=== PATIENT | female | born 1945 | race Caucasian/White ===

== ENCOUNTER → 2021-11-22 13:26 | Outpatient (CLI) | payer OTHER, SELFPAY ==
[2021-11-22 13:53] LABS: COVID19 -Nasal RAPID Negative (Negative)
== END ==
PROVIDERS: Visit Provider Surgery
DX: Z20.822 Contact with and (suspected) exposure to COVID-19 (principal); Z01.812 Encounter for preprocedural laboratory examination
CPT/HCPCS: 87635; C9803

== ENCOUNTER 2021-11-25 09:52 | Day surgery (SDC) | payer OTHER, SELFPAY ==
--- NOTE | 2021-11-25 | PATH_ITS ---
[facility] Accession Number: [id number] . 01 Material submitted: . PART A: stomach - ANTRUM PART B: gastrointestinal site - GASTRIC POLYPS PART C: esophagus - DISTAL ESOPHAGUS . 01 Diagnosis: A. Stomach, Antrum, Biopsy: Antral mucosa with mild chronic gastritis and mild reactive gastropathy. Negative for Helicobacter by immunohistochemistry. Negative for intestinal metaplasia. Negative for dysplasia and malignancy. . B. Stomach, Polyps, Biopsies: Fundic gland polyp. Gastric hyperplastic polyp. No evidence of Helicobacter on H/E stain. Negative for intestinal metaplasia. Negative for dysplasia and malignancy. . C. Distal Esophagus, Biopsies: Squamocolumnar junctional mucosa with specialized intestinal metaplasia, consistent with Donnelly's esophagus. Negative for dysplasia and malignancy. MRV 11/29/2021 1312 Local . 01 Electronically signed: . Imelda Torres MD, Pathologist NPI- [id number] . 01 Gross description: . Part A: ANTRUM: Received in formalin is 1 fragment(s) of angela, soft tissue measuring 0.3 x 0.2 x 0.2 cm submitted entirely in 1 cassette(s) Part B: GASTRIC POLYPS: Received in formalin are 2 fragment(s) of angela, soft tissue measuring 0.3 x 0.3 x 0.1 cm to 0.3 x 0.2 x 0.1 cm submitted entirely in 1 cassette(s) Part C: DISTAL ESOPHAGUS: Received in formalin is 1 fragment(s) of angela, soft tissue measuring 0.3 x 0.2 x 0.2 cm submitted entirely in 1 cassette(s) /CPE 11/26/2021 0836 Local . 01 Microscopic: . A. An immunohistochemical stain was performed to evaluate for Helicobacter organisms and is negative. The control stain showed appropriate reactivity. . * This test was developed and its performance characteristics determined by [facility]. It has not been cleared or approved by the U.S. Food and Drug Administration. The FDA has determined that such clearance or approval is not necessary. This test is used for clinical purposes. It should not be regarded as investigational or for research. . 01 Pathologist provided ICD-10: K22.70 . 01 CPT . 722012, 113280, 143925, T91281 Specimen Comment: A courtesy copy of this report has been sent to [phone] Performed at: 01 [facility] [address] [place] [address], [place], [place] [id number] MD David Nogueira MD Phone: [phone]
[2021-11-25 10:23] VITALS: BP 145/69; PULSE 70; RESP 16; TEMP 37.2; O2SAT 96; BMI 21.9
[2021-11-25] MEDS: SODIUM CHLORIDE 0.9% 1,000 ML 100 ML IV (10:33)
--- NOTE | 2021-11-25 10:58 | PM.HP.1 ---
History of Present Illness History of Present Illness Date Patient Seen: 11/25/21 Time Patient Seen: 10:58 Chief complaint: SDC Narrative: I reviewed my recent office note. Patient is indicated for Barretts surveillance. Patient History Medical History Anxiety Barretts esophagus Depression Dysphagia Fibromyalgia Gastric reflux IBS (irritable bowel syndrome) IPMN (intraductal papillary mucinous neoplasm) Kidney lesion Melanoma Surgical History H/O Whipple procedure (~2018) History of colonoscopy History of esophagogastroduodenoscopy (EGD) History of hemorrhoidectomy History of hip surgery (~2013) History of tonsillectomy Family & Social History Social History: household members family,children Tobacco & Substance use: Smoking Status Never smoker alcohol intake never Substance Use Type does not use Meds Home Medications and Allergies Home Medications Medication Instructions Recorded Confirmed Type Fergon 11/25/21 History Vitamin D3 PO DAILY 11/25/21 History acetaminophen 500 mg PO QID 11/25/21 11/25/21 History calcium 11/25/21 History citalopram 20 mg tablet 20 mg PO DAILY 11/25/21 11/25/21 History gabapentin 300 mg capsule 300 mg PO TID 11/25/21 11/25/21 History omeprazole 20 mg capsule,delayed 20 mg PO DAILY 11/25/21 11/25/21 History release Allergies Allergy/AdvReac Type Severity Reaction Status Date / Time adhesive tape AdvReac Mild Redness, Verified 11/25/21 10:11 irritation Review of Systems Review of Systems ROS: Yes All systems reviewed with the patient and are negative except as otherwise documented Exam Vital Signs (past 8 hours): - 11/25/21 10:23 Temperature 99.0 F Pulse Rate 70 Respiratory Rate 16 Blood Pressure 145/69 H Pulse Oximetry 96 Oxygen Delivery Method Room Air Const General: cooperative and comfortable Orientation: alert HENMT Head: normocephalic Ears: external ears normal Nose: external nose normal Face and sinus: normal facial exam Mouth: oral mucosae normal Eyes General: appearance normal, both eyes and all related structures Neck Neck: normal visual inspection Chest Chest: normal inspection of the chest Resp Effort & Inspection: normal respiratory effort Cardio Rate: regular rate GI Inspection: normal to inspection Skin General: no rashes or lesions noted and No jaundice Neuro General: patient alert and moves all extremities Cognition: normal cognition Speech: speech normal Extrem General: no pedal edema Psych Appearance: grossly normal Assessment & Plan Assessment & Plan narrative: Barretts esophagus. EGD is planned for today. Time Spent With Patient Critical Care time: I spent a total of [] minutes of critical care time on this patient's care today; this time is exclusive of procedural time.
--- NOTE | 2021-11-25 11:01 | PM.PREOP ---
Pre-operative Note COVID-19 COVID-19 status: Negative Result date/Date tested (Pos, Neg/Pending): 11/22/21 Criteria for continued procedure: Possibility delay results in more complex future surgery or treatment Interval Note History & Physical reviewed/Exam performed by Physician: Yes Changes to H&P: No ASA Class (for procedural sedation): II
--- NOTE | 2021-11-25 11:16 | P.OP.EGD_ITS ---
Operative Date/Time/Diagnoses Date of procedure: 11/25/21 Time of procedure: 11:16 Pre-op diagnosis: History of Barretts esophagus Post-op diagnosis: same Procedure & Clinicians Study performed: EGD with biopsies Same procedure as scheduled: Yes Indications: History of Barretts esophagus Surgeon: Felipe Vela Procedure Notes SCOAP/Timeout: Done Procedure in detail: After the risks and benefits were explained, written and verbal informed consent was obtained. The patient was brought into the procedure room and placed into the left lateral decubitus position. Please see nurse copy and print associate notes for sedation details. The scope was introduced into the mouth through the bite block and advanced under direct visualization to the 2nd portion of the duodenum. The scope was slowly withdrawn carefully examining the mucosa for any defects or lesions. Retroflexed views were accomplished in the stomach. The stomach was decompressed, the scope was then removed from the patient who tolerated the procedure well. Sedation minutes: 9 Complications: none Impression: 1. Duodenum: This demonstrated a side to end widely patent anastomosis consistent with the history of pylorus sparing Whipple. 2. Stomach: Mild erythema was noted in the antrum. No ulcers no mass lesions no outlet obstruction. Biopsies from the antrum required for exclusion of H pylori or other pathology. There were a few diminutive polyps in the gastric body and fundus region. A couple of these were sampled for histopathologic analysis. Otherwise retroflexed views of the LES were unremarkable. 3. Esophagus: The squamocolumnar junction extended into the tubular esophagus by approximately 1-1/2-2 cm in a single tongue. There was no evidence of any active inflammation no strictures no nodularity. I would grade this as C 0 M 1.5 Barretts. The tongue in the 2:00 a.m. location was targeted for biopsy and submitted for histopathology. Endoscopic diagnosis 1. C 0 M 1.5 Barretts 2. Diminutive gastric polyps 3. Mild gastropathy 4. Patent jejuno-duodenostomy consistent with pylorus sparing Whipple anatomy Post-procedure Plan for aftercare: 1. Await histopathology 2. Continue anti-reflux therapy 3. Surveillance upper endoscopy would typically be recommended for 3-5 years and is therefore not required. Disposition: PACU
[2021-11-25 11:18] VITALS: BP 133/67; PULSE 75; RESP 16; TEMP 37.1; O2SAT 95
[2021-11-25 11:23] VITALS: BP 132/67; PULSE 74; RESP 16; O2SAT 98
[2021-11-25 11:28] VITALS: BP 135/67; PULSE 77; RESP 16; O2SAT 95
[2021-11-25 11:41] VITALS: BP 155/70; PULSE 88; RESP 16; TEMP 36.8; O2SAT 98
[2021-11-25 11:46] VITALS: BP 162/74; PULSE 74; RESP 16; TEMP 36.9; O2SAT 99
== END 2021-11-25 12:01 | disposition home or self-care (01) ==
PROVIDERS: PCP Internal Medicine; Referring Provider Internal Medicine Gastroenterology; Visit Provider Internal Medicine Gastroenterology
PROC: 0DJ08ZZ Inspection of Upper Intestinal Tract, Via Natural or Artificial Opening Endoscopic (ICD-10-PCS; CPT 43235; principal; 2021-11-25 11:00)
DX: K22.70 Barrett's esophagus without dysplasia (principal); K31.9 Disease of stomach and duodenum, unspecified; Z98.890 Other specified postprocedural states; K31.7 Polyp of stomach and duodenum; K29.50 Unspecified chronic gastritis without bleeding
CPT/HCPCS: 43239; J2704

== ENCOUNTER → 2024-11-29 11:18 | Outpatient (CLI) | payer MEDICARE, SELFPAY ==
--- NOTE | 2024-11-30 14:29 | ST.SWALLOW ---
Visit Care Team Role Provider Type Johanne Agudelo MD Primary Care Provider Non-Staff Specialty: Internal Medicine Address: [address] [place] [address] [address], [place], [address] Email: Ciara Martinez MD Attending Provider Non-Staff Referring Provider Specialty: Family Practice Address: [address] [facility] [address], [place], [address] Email: Modified Barium Swallow Study IT SUPPORT ENGINEER Modified Barium Swallow Study Start: 11/30/24 12:42 Freq: Status: Active Protocol: Document 11/29/24 12:43 LNK (Rec: 11/30/24 14:13 LNK Desktop) Modified Barium Swallow Study Total Time Visit Start Time 12:00 Visit Stop Time 12:[address] Ciara Martinez Reason for Referral dysphagia Setting Setting Outpatient Care Patient Information Identification Type Name,Date of Patient History Pt was seen for a Modified Barium Swallow Study with c/o difficulty swallowing; specifically food sticking in her throat. She specifically mentioned bagels being difficult. She noted that drinking water helps the swallow She has a PMH of GERD and Donnelly's esophagus as well as fibromyalgia. There have been reports of a correlation between GERD and fibromyalgia re: difficulty with swallowing. Pt noted that she was in a flare period currently. Subjective Observations Pt was seated in the fluoroscopy chair with directions and procedures described for her. She indicated she understood and agreed to proceed. Patient Positioning Position View Lat-A/P Imaging Lateral View Textures Administered Trials Presented Thin Liquid via Spoon (IDDSI 0 ),Thin Liquid via Cup (IDDSI 0 ),Extremely Thick Liquid via Spoon (IDDSI 4),Regular (IDDSI 7) Barium Tablet Yes The IDDSI Framework Protocol: IDDSI.1 Oral Impairment Source: The Modified Barium Swallow Impairment Profile (MBSImP??) Lip Closure No labial escape Tongue Control During Bolus Hold Cohesive bolus between tongue to palatal seal Bolus Preparation/Mastication Timely & efficient chewing & mashing Bolus Transport/Lingual Motion Brisk tongue motion Oral Residue Residue collection on oral structures Location Tongue Initiation of Pharyngeal Swallow Bolus head at pyriforms Additional Oral Impairment Observations Oral phase of swallow WNL *OME and DKS were observed to be WNL. *Dentition natural and in good hygiene *Mastication observed with rotary chew pattern. *Good bolus formation, control and AP transition. *Velopharyngeal closure was WNL. Pharyngeal Impairment Source: The Modified Barium Swallow Impairment Profile (MBSImP??) Soft Palate Elevation No bolus between soft palate & pharyngeal wall Laryngeal Elevation Min.sup.move. thyroid cart. w/ min.approx.arytenoids to epiglot.petiole Anterior Hyoid Excursion No anterior movement Epiglottic Movement Complete inversion Laryngeal Vestibular Closure Incomplete; narrow column air/ contrast in laryngeal vestibule Pharyngeal Stripping Wave Present - complete Pharyngoesophageal Segment Opening Complete distention & complete duration; no obstruction of flow Tongue Base Retraction Wide column of contrast/air betwn tongue base & post. pharyngeal wall Pharyngeal Residue Collection of residue within/ on pharyngeal structures Location Diffuse (>3 areas) Additional Pharyngeal Impairment *Moderate reduction in base of Observations tongue retraction *Minimal hyolaryngeal elevation; epiglottic inversion complete *Reduced seal of the laryngeal vestibule evidenced by frequent laryngeal penetration (PAS 2: penetrates larynx above the folds, no visible contrast residue) HOWEVER, after several swallow trials contrast was visible on the vocal folds; likely due to residual secretions entering larynx. * Pt reported that drinking 3 consecutive swallows was difficult; she noted needing to swallow one at a time * Pooling within the vallecula with semi soft and regular texture A/P View Textures Administered Trials Presented Thin Liquid via Cup (IDDSI 0) The IDDSI Framework Protocol: IDDSI.1 A/P View Observations Pharyngeal Contraction Complete Esophageal Clearance Upright Position Complete clearance; esophageal coating Esophageal Function WFL Additional A-P Observations Barium tablet stopped near LES requiring several swallows of water to clear tablet to stomach; pt reported the pill as stuck Esophageal phase of swallow WNL Clinical Impressions Dysphagia Type Pharyngeal Findings Mild to moderate pharyngeal phase dysphagia characterized by overall muscle weakness. Laryngeal penetration was observed with residue ( pharyngeal/laryngeal) eventually pooling on the vocal folds. This pooling would trigger a throat clear/ cough. Overall muscle weakness would likely result in an inefficient swallow, leaving bolus residue within the pharynx. Eventual pooling on the vocal folds would then trigger coughing. Mild aspiration risk Recommend ST for swallowing therapy/base of tongue exercises. Pt lives in [place], [place]; teletherapy is recommended: [facility] at [phone] (phone) or [phone] (fax) Rehabilitation Potential Excellent Patient Appropriate for Therapy Yes Recommendations Diet Comments no diet change recommended Treatment Plan Therapy Recommendations Outpatient Speech Therapy
== END ==
PROVIDERS: PCP Internal Medicine; Referring Provider Family Medicine; Visit Provider Family Medicine
DX: R13.13 Dysphagia, pharyngeal phase (principal); R13.14 Dysphagia, pharyngoesophageal phase
CPT/HCPCS: 74230; 92611